=== PATIENT | male | born 1955 | race Caucasian/White ===

== ENCOUNTER 2019-03-06 13:54 | Day surgery (SDC) | payer OTHER ==
[~2019-03-06] VITALS: Ht 165.1 cm; Wt 81.6 kg
[2019-03-06 11:00] VITALS: BP 127/65
[~2019-03-06 13:54] MED LIST: AMLO10TA4 PO; ASPI-630 PO; CARV12.5 PO; CARV6.25 PO; CHOL10003 PO; FERR-36 PO; HYDR-2761 PO; INSU100I27 SQ; INSU100V8 SQ; LEVO100T5 PO; MAGN71.5 PO; METF500T16 PO; MYCO500T PO; SIMV20TA18 PO; TACR0.5C2 PO; TACR1CAP4 PO
[2019-03-06] MEDS ORDERED: MINERAL OIL/PETROLATUM,WHITE OPHTH OINT 3.5GM TUBE. OU PRN (16:15)
[2019-03-06] MEDS ORDERED: INSULIN REGULAR VIAL 150 UNIT in 0.9 % SODIUM CHLORIDE 150ML 150 ML IV PRN (16:15)
[2019-03-06] MEDS ORDERED: VECURONIUM BOLUS 10 MG VIAL. IV ONE (16:15)
[2019-03-06 17:42] LABS: BASO % 0 % (0-3); EOS % 0 % (0-3); HEMATOCRIT 40.3 % (39.0-53.0); HEMOGLOBIN 13.4 g/dL (13.0-17.5); LYMPH # 0.5 x10^3/uL (1.0-4.8); LYMPH % 3 % (24-48); MEAN CORPUSCULAR HEMOGLOBIN 29 pg (25-35); MEAN CORPUSCULAR HGB CONC 33 g/dL (31-37); MEAN CORPUSCULAR VOLUME 87 fL (79-100); MONO # 1.5 x10^3/uL (0.0-1.1); MONO % 8 % (0-9); NEUT # 16.6 x10^3/uL (1.8-7.7); NEUT % 90 % (31-73); PLATELET COUNT 135 x10^3/uL (140-400); RED BLOOD COUNT 4.62 x10^6/uL (4.30-5.70); RED CELL DISTRIBUTION WIDTH 14.5 % (11.5-14.5); WHITE BLOOD COUNT 18.6 x10^3/uL (4.0-11.0)
[2019-03-06 17:53] LABS: PROTHROMBIN TIME PATIENT 17.3 SEC (11.7-14.0)
[2019-03-06] MEDS ORDERED: ALBUMIN HUMAN 25% 50 ML IV ONE ×3 (18:00→20:00)
[2019-03-06 18:02] LABS: ANION GAP 19 (6-14); BLOOD UREA NITROGEN 49 mg/dL (8-26); CALCIUM 6.7 mg/dL (8.5-10.1); CARBON DIOXIDE 16 mmol/L (21-32); CHLORIDE 104 mmol/L (98-107); CREATININE 3.6 mg/dL (0.7-1.3); GFR 17.1; GLUCOSE 144 mg/dL (70-99); SODIUM 139 mmol/L (136-145)
[2019-03-06] MEDS: IV RINGERS,LACTATED 1000ML 1,000 ML IV SCH (18:07)
[2019-03-06 18:16] LABS: ALBUMIN 1.1 g/dL (3.4-5.0); ALK PHOS 88 U/L (46-116); ALT (SGPT) 188 U/L (16-63); AMYLASE 192 U/L (25-115); AST (SGOT) 56 U/L (15-37); CREATINE KINASE 59 U/L (39-308); DIRECT BILIRUBIN 0.4 mg/dL (0.0-0.2); GAMMA GLUTAMYL TRANSPEPTIDASE 110 U/L (10-85); LACTATE DEHYDROGENASE 653 U/L (85-227); MAGNESIUM 0.1 mg/dL (1.8-2.4); PHOSPHORUS 8.8 mg/dL (2.6-4.7); TOTAL BILIRUBIN 0.5 mg/dL (0.2-1.0); TOTAL PROTEIN 4.4 g/dL (6.4-8.2)
[2019-03-06 18:18] LABS: LIPASE < 10 U/L (73-393)
[2019-03-06] MEDS ORDERED: MAGNESIUM SULFATE 2GM 50 ML IV ONE (18:45)
[2019-03-06] MEDS: PIPERACILLIN/TAZOBACTAM 2.25 GM in IV NORMAL SALINE 50ML 50 ML IV SCH (19:03)
[2019-03-06] MEDS ORDERED: IV RINGERS,LACTATED 500ML 500 ML IV ONE (19:30)
[2019-03-06] MEDS ORDERED: IOHEXOL 350 MG/ML 100 ML VIAL. IV ONE (20:45)
[2019-03-06] MEDS ORDERED: TACROLIMUS 0.5 MG CAPSULE PO SCH (21:00)
--- NOTE | 2019-03-06 22:09 | RAD ---
Study: CT angiography of the head INDICATION: Organ donor. Brain . COMPARISON: CT head 03/04/2019 TECHNIQUE: Axial CT imaging of the head performed both prior to and after the intravenous administration of 75 cc Omnipaque 350. 3-D MIP reconstructions were obtained. One or more of the following individualized dose reduction techniques were utilized for this examination: 1. Automated exposure control 2. Adjustment of the mA and/or kV according to patient size 3. Use of iterative reconstruction technique. FINDINGS: Diffuse cerebral edema with generalized loss of sulcation and absent hall-white matter interface. Absent contrast opacification of the intracranial vertebral arteries and the basilar artery. There is maintained opacification of the proximal segments of the anterior middle cerebral arteries bilaterally but loss of enhancement more peripherally. Extensive background calcific atherosclerosis. Endotracheal and orogastric tubes are partially visualized. Expected paranasal sinus mucosal thickening and a small amount of fluid in the setting of intubation. Bilateral phthisis bulbi. IMPRESSION: 1. Diffuse cerebral edema with loss of hall-white matter differentiation and absent visualization of sulci. 2. Absent opacification of the intracranial vertebral arteries and the basilar artery which could be related to thrombosis or lack of arterial flow due to increased intracranial pressure. There is maintained contrast opacification of the proximal anterior and middle cerebral artery segments but with loss of opacification distally in keeping with increased flow resistance. Electronically signed by: POOJA RITCHIE MD (03/06/2019 10:06 PM) [facility]
[2019-03-06 22:38] LABS: CALCIUM 6.5 mg/dL (8.5-10.1); CREATININE 3.7 mg/dL (0.7-1.3); GFR 16.6; POTASSIUM 5.5 mmol/L (3.5-5.1)
[2019-03-06] MEDS: DOXYCYCLINE HYCLATE 100 MG in IV DEXTROSE 5% 100ML 100 ML IV SCH (23:14)
[2019-03-06] MEDS: MYCOPHENOLATE MOFETIL PEG SCH (23:20)
[2019-03-06] MEDS: TACROLIMUS 0.5 MG CAPSULE PO SCH (23:57)
[2019-03-07] MEDS: PIPERACILLIN/TAZOBACTAM 2.25 GM in IV NORMAL SALINE 50ML 50 ML IV SCH ×5 (00:16→23:37)
[2019-03-07 00:30] LABS: BASO % 0 % (0-3); EOS % 0 % (0-3); HEMATOCRIT 39.2 % (39.0-53.0); HEMOGLOBIN 12.7 g/dL (13.0-17.5); LYMPH # 0.4 x10^3/uL (1.0-4.8); LYMPH % 2 % (24-48); MEAN CORPUSCULAR HEMOGLOBIN 28 pg (25-35); MEAN CORPUSCULAR HGB CONC 32 g/dL (31-37); MEAN CORPUSCULAR VOLUME 88 fL (79-100); MONO # 0.6 x10^3/uL (0.0-1.1); MONO % 4 % (0-9); NEUT # 13.8 x10^3/uL (1.8-7.7); NEUT % 93 % (31-73); PLATELET COUNT 135 x10^3/uL (140-400); RED BLOOD COUNT 4.47 x10^6/uL (4.30-5.70); RED CELL DISTRIBUTION WIDTH 14.6 % (11.5-14.5); WHITE BLOOD COUNT 14.8 x10^3/uL (4.0-11.0)
[2019-03-07] MEDS ORDERED: CALCIUM CHLORIDE 1,000 MG/10 ML DISP.SYRIN IV ONE (00:30)
[2019-03-07 00:39] LABS: ALBUMIN 1.2 g/dL (3.4-5.0); DIRECT BILIRUBIN 0.7 mg/dL (0.0-0.2); MAGNESIUM 1.9 mg/dL (1.8-2.4); PHOSPHORUS 8.6 mg/dL (2.6-4.7); TOTAL BILIRUBIN 0.8 mg/dL (0.2-1.0); TOTAL PROTEIN 4.3 g/dL (6.4-8.2)
[2019-03-07 00:40] LABS: PROTHROMBIN TIME PATIENT 17.7 SEC (11.7-14.0)
[2019-03-07 01:07] LABS: HEMOGLOBIN A1C 6.5 % (4.8-5.6)
[2019-03-07] MEDS: IV RINGERS,LACTATED 1000ML 1,000 ML IV SCH (01:18)
[2019-03-07] MEDS ORDERED: FUROSEMIDE 40 MG/4 ML VIAL. IVP ONE ×2 (02:15→07:00)
[2019-03-07] MEDS ORDERED: SODIUM BICARB ADULT 8.4% 50 MEQ/50 ML DISP.SYRIN. IV ONE ×3 (02:15→17:00)
[2019-03-07 05:28] LABS: BASO % 0 % (0-3); EOS # 0.1 x10^3/uL (0.0-0.7); EOS % 0 % (0-3); HEMOGLOBIN 12.7 g/dL (13.0-17.5); LYMPH # 0.3 x10^3/uL (1.0-4.8); LYMPH % 2 % (24-48); MEAN CORPUSCULAR HEMOGLOBIN 29 pg (25-35); MEAN CORPUSCULAR HGB CONC 33 g/dL (31-37); MEAN CORPUSCULAR VOLUME 87 fL (79-100); MONO # 0.9 x10^3/uL (0.0-1.1); MONO % 5 % (0-9); NEUT # 18.1 x10^3/uL (1.8-7.7); NEUT % 93 % (31-73); PLATELET COUNT 156 x10^3/uL (140-400); RED BLOOD COUNT 4.47 x10^6/uL (4.30-5.70); RED CELL DISTRIBUTION WIDTH 14.7 % (11.5-14.5); WHITE BLOOD COUNT 19.4 x10^3/uL (4.0-11.0)
[2019-03-07 05:54] LABS: CALCIUM 7.9 mg/dL (8.5-10.1); CREATININE 3.8 mg/dL (0.7-1.3); GFR 16.1; POTASSIUM 5.9 mmol/L (3.5-5.1)
[2019-03-07 06:06] LABS: ALBUMIN 1.6 g/dL (3.4-5.0); DIRECT BILIRUBIN 0.7 mg/dL (0.0-0.2); MAGNESIUM 2.1 mg/dL (1.8-2.4); PHOSPHORUS 8.9 mg/dL (2.6-4.7); TOTAL PROTEIN 5.1 g/dL (6.4-8.2)
[2019-03-07] MEDS ORDERED: METOCLOPRAMIDE HCL 10 MG/2 ML VIAL. IVP ONE (07:00)
[2019-03-07] MEDS: NOREPINEPHRIN 8MG/250ML PREMIX 250 ML IV PRN ×3 (07:59→23:31)
[2019-03-07] MEDS: MYCOPHENOLATE MOFETIL PEG SCH ×2 (09:39→21:00)
[2019-03-07] MEDS: DOXYCYCLINE HYCLATE 100 MG in IV DEXTROSE 5% 100ML 100 ML IV SCH ×2 (09:40→21:00)
[2019-03-07 10:16] LABS: CALCIUM 7.3 mg/dL (8.5-10.1); GFR 15.1; POTASSIUM 5.7 mmol/L (3.5-5.1)
[2019-03-07] MEDS: TACROLIMUS 0.5 MG CAPSULE PO SCH ×2 (10:41→21:00)
[2019-03-07 11:15] LABS: BASO % 0 % (0-3); EOS # 0.1 x10^3/uL (0.0-0.7); EOS % 1 % (0-3); HEMATOCRIT 34.7 % (39.0-53.0); HEMOGLOBIN 11.5 g/dL (13.0-17.5); LYMPH # 0.4 x10^3/uL (1.0-4.8); LYMPH % 2 % (24-48); MEAN CORPUSCULAR HEMOGLOBIN 29 pg (25-35); MEAN CORPUSCULAR HGB CONC 33 g/dL (31-37); MEAN CORPUSCULAR VOLUME 87 fL (79-100); MONO # 1.3 x10^3/uL (0.0-1.1); MONO % 6 % (0-9); NEUT # 19.1 x10^3/uL (1.8-7.7); NEUT % 91 % (31-73); PLATELET COUNT 137 x10^3/uL (140-400); RED BLOOD COUNT 3.98 x10^6/uL (4.30-5.70); RED CELL DISTRIBUTION WIDTH 14.5 % (11.5-14.5)
[2019-03-07 11:25] LABS: PROTHROMBIN TIME PATIENT 17.5 SEC (11.7-14.0)
[2019-03-07] MEDS ORDERED: MICAFUNGIN 100 MG in IV DEXTROSE 5% 100ML 100 ML IV SCH (12:00)
[2019-03-07] MEDS ORDERED: CALCIUM CHLORIDE 1,000 MG in IV NORMAL SALINE 50ML 50 ML IV ONE (12:00)
[2019-03-07 13:27] LABS: ALBUMIN 1.2 g/dL (3.4-5.0); DIRECT BILIRUBIN 0.7 mg/dL (0.0-0.2); MAGNESIUM 1.7 mg/dL (1.8-2.4); PHOSPHORUS 7.2 mg/dL (2.6-4.7); TOTAL BILIRUBIN 0.9 mg/dL (0.2-1.0); TOTAL PROTEIN 3.9 g/dL (6.4-8.2)
--- NOTE | 2019-03-07 14:10 | RAD ---
Examination: BRAIN IMG W/ VASCULAR FLOW History: Brain evaluation Comparison/Correlation: 03/04/2019 CT head without contrast Findings: 30 mCi technetium 99m pertechnetate was intravenously administered for brain flow evaluation. Cannot imaging was performed. Flow images demonstrate absence of intracranial radiotracer accumulation. Delayed image demonstrates minimal radiotracer within the sagittal sinus without brain parenchymal perfusion. Impression: Absence of intracranial arterial flow. Minimal flow within the sagittal sinus on delayed images. Flow involving sagittal sinus on the delayed images likely relates to drainage of scalp venous vasculature. Findings overall corresponding with brain in the appropriate clinical setting. Electronically signed by: Marcus Thurston MD (03/07/2019 2:07 PM) [facility]
[2019-03-07 14:31] LABS: BASE EXCESS ABG -10 mmol/L (-3-3); FIO2 ABG 100%; HCO3 ABG 17 mmol/L (21-28); PCO2 ABG 40 mmHg (35-46); PO2 ABG 70 mmHg (65-108); SAT O2 ABG 94 % (92-99)
[2019-03-07] MEDS ORDERED: IOHEXOL 350 MG/ML 100 ML VIAL. IV ONE (14:45)
[2019-03-07] MEDS ORDERED: CONTRAST GIVEN. MC PRN (15:00)
[2019-03-07 16:00] LABS: BASE EXCESS ABG -13 mmol/L (-3-3); HCO3 ABG 15 mmol/L (21-28); PCO2 ABG 39 mmHg (35-46); PO2 ABG 80 mmHg (65-108); SAT O2 ABG 95 % (92-99)
[2019-03-07 16:04] LABS: FIO2 ABG 100
[2019-03-07 16:13] LABS: BASO % 0 % (0-3); EOS # 0.1 x10^3/uL (0.0-0.7); EOS % 1 % (0-3); HEMATOCRIT 24.8 % (39.0-53.0); HEMOGLOBIN 8.3 g/dL (13.0-17.5); LYMPH # 0.5 x10^3/uL (1.0-4.8); LYMPH % 2 % (24-48); MEAN CORPUSCULAR HEMOGLOBIN 29 pg (25-35); MEAN CORPUSCULAR HGB CONC 33 g/dL (31-37); MEAN CORPUSCULAR VOLUME 88 fL (79-100); MONO # 1.1 x10^3/uL (0.0-1.1); MONO % 5 % (0-9); NEUT # 19.5 x10^3/uL (1.8-7.7); NEUT % 92 % (31-73); PLATELET COUNT 124 x10^3/uL (140-400); RED BLOOD COUNT 2.83 x10^6/uL (4.30-5.70); RED CELL DISTRIBUTION WIDTH 14.8 % (11.5-14.5); WHITE BLOOD COUNT 21.2 x10^3/uL (4.0-11.0)
--- NOTE | 2019-03-07 16:15 | RAD ---
PQRS Compliance statement: One or more of the following individualized dose reduction techniques were utilized for this examination: 1. Automated exposure control. 2. Adjustment of the mA and/or kV according to patient size. 3. Use of iterative reconstruction technique. INDICATION: Liver evaluation for organ donation. TECHNIQUE: CT abdomen without and with IV contrast with MIP reformats. COMPARISON: None FINDINGS: Heart is normal in size. Small bilateral pleural effusions are seen with consolidation in the bilateral lung bases which may be from passive atelectasis or pneumonia. Liver is normal in morphology and measures 15 cm in craniocaudal dimension. Small amount of perihepatic ascites is seen. No arterially enhancing lesions seen. Spleen is unenlarged. Gallstone or sludge in the gallbladder. Fatty infiltration in the pancreas. Adrenal glands demonstrate no nodularity. Bilaterally atrophic kidneys. NG tube is seen with its tip in the distal stomach. Moderate atherosclerotic plaque is seen at the origin of the celiac axis causing moderate narrowing. Diffuse atherosclerotic plaque is seen in the splenic artery which is patent. Left gastric artery is patent. Moderate narrowing is seen in the region of the common hepatic artery which remains patent. Left and right hepatic arteries are patent. Moderate atherosclerotic plaque in the SMA causing multifocal 50 percent narrowing. Bilateral renal arteries are patent. Occluded MIKE. Main portal vein and left and right portal veins are patent. Splenic vein is patent. No pneumoperitoneum. No suspicious bony lesion. IMPRESSION: No apparent focal liver lesion seen. Please see above for vascular details. Bilateral pleural effusions with consolidation in the bilateral lung bases which may be secondary to pneumonia or passive atelectasis. Electronically signed by: Jonathan Toscano DO (03/07/2019 4:12 PM) [facility]
--- NOTE | 2019-03-07 16:24 | RAD ---
CHEST AP ONLY Clinical indications: On the ventilator. Follow-up study. COMPARISON: March 06, 2019. Findings: There've been no interval tube or line changes. Persistent left lung base consolidation is seen and there is persistent left midlung zone infiltrate. There has been improvement in the size of the left effusion which is now small. Right perihilar lung infiltrate or pulmonary edema is stable. The heart size, pulmonary vasculature, mediastinum and both cris are stable. Impression: Improvement of left-sided pleural effusion from the prior study. Electronically signed by: Humberto Serrano MD (03/07/2019 4:21 PM) [facility]
[2019-03-07 16:28] LABS: PROTHROMBIN TIME PATIENT 22.7 SEC (11.7-14.0)
[2019-03-07 16:46] LABS: CALCIUM 7.2 mg/dL (8.5-10.1); CREATININE 4.2 mg/dL (0.7-1.3); GFR 14.3; POTASSIUM 5.8 mmol/L (3.5-5.1)
[2019-03-07 16:59] LABS: ALBUMIN 1.4 g/dL (3.4-5.0); DIRECT BILIRUBIN 0.9 mg/dL (0.0-0.2); TOTAL PROTEIN 3.9 g/dL (6.4-8.2)
[2019-03-07 17:01] LABS: PHOSPHORUS 9.3 mg/dL (2.6-4.7)
[2019-03-07 17:14] LABS: % BANDS 37 % (0-9); % LYMPHS 4 % (24-48); % MONOS 5 % (0-10); % SEGS 54 % (35-66)
[2019-03-07 17:15] LABS: ACANTHOCYTES FEW; BURR CELLS MANY; PLT ESTIMATE DECREASED (ADEQUATE); SCHISTOCYTES OCC; SPHEROCYTES FEW
[2019-03-07 17:16] LABS: POLYCHROMASIA SLIGHT
[2019-03-07] MEDS ORDERED: INSULIN REGULAR VIAL 150 UNIT in 0.9 % SODIUM CHLORIDE 150ML 150 ML IV PRN (17:30)
[2019-03-07] MEDS ORDERED: DEXTROSE 5% IV ONE (18:00)
[2019-03-07] MEDS ORDERED: CALCIUM CHLORIDE IV ONE (18:00)
[2019-03-07] MEDS ORDERED: IOHEXOL 350 MG/ML 100 ML VIAL. ONE (20:38)
[2019-03-07 22:22] LABS: BILIRUBIN,URINE SMALL (NEG); CLARITY,URINE TURBID; NITRITE,URINE NEGATIVE (NEG); PROTEIN,URINE 100 mg/dL (NEG-TRACE); UROBILINOGEN,URINE 0.2 mg/dL (0.2 mg/dL)
[2019-03-07 22:34] LABS: HEMATOCRIT 37.1 % (39.0-53.0); HEMOGLOBIN 12.2 g/dL (13.0-17.5); RED BLOOD COUNT 4.24 x10^6/uL (4.30-5.70); WHITE BLOOD COUNT 24.6 x10^3/uL (4.0-11.0)
[2019-03-07 22:42] LABS: BASE EXCESS ABG -10 mmol/L (-3-3); CORRECTED PCO2 ABG 39 mmHg; CORRECTED PH ABG 7.26; CORRECTED PO2 ABG 135 mmHg; HCO3 ABG 17 mmol/L (21-28); PCO2 ABG 40 mmHg (35-46); PO2 ABG 142 mmHg (65-108); SAT O2 ABG 99 % (92-99)
[2019-03-07 22:43] LABS: PROTHROMBIN TIME PATIENT 17.8 SEC (11.7-14.0)
[2019-03-07 22:44] LABS: COLOR,URINE YELLOW
[2019-03-07 22:51] LABS: ALBUMIN 1.3 g/dL (3.4-5.0); DIRECT BILIRUBIN 0.6 mg/dL (0.0-0.2); MAGNESIUM 2.2 mg/dL (1.8-2.4); TOTAL BILIRUBIN 0.8 mg/dL (0.2-1.0)
[2019-03-07 22:53] LABS: CALCIUM 8.4 mg/dL (8.5-10.1); CREATININE 4.5 mg/dL (0.7-1.3); GFR 13.2; POTASSIUM 5.3 mmol/L (3.5-5.1)
[2019-03-07 22:57] LABS: BACTERIA,URINE 0 /HPF (0-FEW); RBC,URINE >40 /HPF (0-2)
[2019-03-07 22:58] LABS: SPERM,URINE PRESENT /HPF
[2019-03-07 23:41] LABS: FIO2 ABG 100
[2019-03-08 02:07] LABS: BASE EXCESS ABG -7 mmol/L (-3-3); CORRECTED PCO2 ABG 40 mmHg; CORRECTED PH ABG 7.29; CORRECTED PO2 ABG 114 mmHg; HCO3 ABG 19 mmol/L (21-28); SAT O2 ABG 98 % (92-99)
[2019-03-08 02:13] LABS: HEMATOCRIT 36.1 % (39.0-53.0); HEMOGLOBIN 11.9 g/dL (13.0-17.5); RED BLOOD COUNT 4.2 x10^6/uL (4.30-5.70); RED CELL DISTRIBUTION WIDTH 14.3 % (11.5-14.5); WHITE BLOOD COUNT 24.6 x10^3/uL (4.0-11.0)
[2019-03-08 02:16] LABS: FIO2 ABG 100; PCO2 ABG 41 mmHg (35-46); PO2 ABG 118 mmHg (65-108)
[2019-03-08 02:21] LABS: CALCIUM 7.8 mg/dL (8.5-10.1); CREATININE 4.4 mg/dL (0.7-1.3); GFR 13.6; POTASSIUM 5.3 mmol/L (3.5-5.1)
[2019-03-08] MEDS ORDERED: ROCURONIUM 50 MG/5 ML VIAL. ONE (02:34)
[2019-03-08] MEDS ORDERED: DAPTOmycin (GENERIC) IVPB 500 MG in IV NORMAL SALINE 50ML 50 ML IV SCH (09:00)
== END 2019-03-08 06:41 ==
LOC: SURG 13:54 → 1 WEST ICU 03-08 01:59 → SURG 03-08 06:41
PROVIDERS: ATTEND Surgery
DX: Z52.6 Liver donor (principal); Z79.899 Other long term (current) drug therapy
CPT/HCPCS: 36415; 36600; 70496; 71045; 74170; 78606; 80048; 80076; 81001; 82150; 82310; 82550; 82805; 82962; 82977; 83036; 83605; 83615; 83690; 83735; 84100; 85007; 85025; 85027; 85384; 85610; 85730; 86850; 86900; 86901; 87040; 87070; 87086; 87205; 96374; A9512; J0878; J1265; J1940; J2248; J2543; J2765; J3475; J3490; J7507; J7517; P9046; Q9967; G0378